=== PATIENT | male | born 1990 | race Caucasian/White ===

== ENCOUNTER 2017-04-27 15:14 | Emergency (ER) | payer SELFPAY ==
[~2017-04-27] VITALS: Ht 182.9 cm; Wt 100.0 kg
[2017-04-27] MEDS ORDERED: CEPHALEXIN500 MG PO (16:41)
[2017-04-27] MEDS ORDERED: DOXYCYC MONO100 M1 PO (17:00)
[2017-04-27 18:02] VITALS: BP 117/84
== END 2017-04-27 18:02 | disposition home or self-care (01) | DRG 605 ==
LOC: ED 15:14
PROC: 0HQFXZZ Repair Right Hand Skin, External Approach (ICD-10-PCS; principal; 2017-04-27)
DX: S61.411A Laceration without foreign body of right hand, initial encounter (principal); S66.329A Laceration of extensor muscle, fascia and tendon of unspecified finger at wrist and hand level, initial encounter; W27.8XXA Contact with other nonpowered hand tool, initial encounter; Y93.89 Activity, other specified; Y92.89 Other specified places as the place of occurrence of the external cause

== ENCOUNTER 2018-10-17 20:41 | Emergency (ER) | payer SELFPAY ==
[~2018-10-17] VITALS: Ht 182.9 cm; Wt 100.0 kg
[~2018-10-17 20:41] MED LIST: CEPHALEXIN500 MG PO; DOXYCYC MONO100 M1 PO
[2018-10-17] MEDS ORDERED: BACTRIM DS1 TAB PO (22:19)
[2018-10-17] MEDS ORDERED: NAPROSYN500 MG PO (22:20)
[2018-10-17 23:10] VITALS: BP 118/72
== END 2018-10-17 23:15 | disposition home or self-care (01) | DRG 603 ==
LOC: ED 20:41
PROC: 0H9KXZZ Drainage of Right Lower Leg Skin, External Approach (ICD-10-PCS; principal; 2018-10-17)
DX: L02.415 Cutaneous abscess of right lower limb (principal); R50.9 Fever, unspecified; F17.210 Nicotine dependence, cigarettes, uncomplicated; B95.62 Methicillin resistant Staphylococcus aureus infection as the cause of diseases classified elsewhere

== ENCOUNTER 2018-10-18 18:14 | Emergency (ER) | payer SELFPAY ==
[~2018-10-18] VITALS: Ht 182.9 cm; Wt 100.0 kg
[~2018-10-18 18:14] MED LIST changes: +BACTRIM DS1 TAB PO; +NAPROSYN500 MG PO
[2018-10-18 18:55] VITALS: BP 119/71
== END 2018-10-18 18:55 | disposition home or self-care (01) | DRG 951 ==
LOC: ED 18:14
DX: Z48.01 Encounter for change or removal of surgical wound dressing (principal); F17.210 Nicotine dependence, cigarettes, uncomplicated

== ENCOUNTER 2018-11-24 17:05 | Emergency (ER) | payer SELFPAY ==
[~2018-11-24] VITALS: Ht 182.9 cm; Wt 100.0 kg
[2018-11-24] MEDS ORDERED: BACTROBAN TOP (17:17)
[2018-11-24] MEDS ORDERED: CLEOCIN300 MG PO ×2 (17:17→18:25)
[2018-11-24 17:23] VITALS: BP 122/77
[2018-11-24] MEDS ORDERED: BACTRIM DS1 TAB PO ×2 (18:23→18:25)
== END 2018-11-24 17:24 | disposition home or self-care (01) | DRG 603 ==
LOC: ED 17:05
DX: L03.115 Cellulitis of right lower limb (principal); F17.200 Nicotine dependence, unspecified, uncomplicated

== ENCOUNTER 2022-02-21 12:24 | Emergency (ER) | payer SELFPAY ==
[~2022-02-21] VITALS: Ht 182.9 cm; Wt 90.0 kg
[~2022-02-21 12:24] MED LIST changes: +BACTROBAN TOP; +CLEOCIN300 MG PO
[2022-02-21 12:56] VITALS: BP 125/77
== END 2022-02-21 14:00 | disposition left against medical advice (07) | DRG 951 ==
LOC: ED 12:24 → LWOBS 13:59
DX: Z53.21 Procedure and treatment not carried out due to patient leaving prior to being seen by health care provider (principal)

== ENCOUNTER 2024-04-20 17:05 | Emergency (ER) | payer SELFPAY ==
[~2024-04-20] VITALS: Ht 182.9 cm; Wt 115.0 kg
[2024-04-20 17:10] VITALS: BP 150/86
[2024-04-20 17:13] VITALS: BP 150/86
[2024-04-20] MEDS ORDERED: Diph, Acellular Pertussis, Tet 0.5 ML/VIAL (Tdap) SDV IM ONE (17:15)
[2024-04-20] MEDS ORDERED: KEFLEX500 MG PO (17:37)
[2024-04-20] MEDS ORDERED: IBUPROFEN600 MG PO (17:37)
== END 2024-04-20 18:50 | disposition home or self-care (01) | DRG 605 ==
LOC: ED 17:05
PROC: 0HQFXZZ Repair Right Hand Skin, External Approach (ICD-10-PCS; principal; 2024-04-20)
DX: S61.214A Laceration without foreign body of right ring finger without damage to nail, initial encounter (principal); W31.89XA Contact with other specified machinery, initial encounter